=== PATIENT | male | born 1950 | race African-American/Black ===

== ENCOUNTER → 2017-01-11 | Day surgery (SDC) | payer OTHER ==
[~2017-01-11] MED LIST: ENAL5TAB PO; HYDR50TA94 PO; LACTATED RINGER'S 1000 ML INJ 1,000 ML ONE; LOVA40TA PO; PROPOFOL 200 MG/20 ML AMP IV ONE; TRAZ150T75 PO
--- NOTE | 2017-01-11 10:00 | GIPROC ---
[facility] [address], [address] COLONOSCOPY PROCEDURE REPORT EXAM DATE: 01/11/2017 PATIENT NAME: Carlito Srinivasan MR #: [id number] BIRTHDATE: 1950 ENDOSCOPIST: Massiel Sommer MD ORDER #: [id number] FIRE CONTROL ASSISTANT: Eliza Castellanos RN STATUS: outpatient INDICATIONS: The patient is a 66 yr old male here for a colonoscopy due to high risk patient with personal history of colonic polyps PROCEDURE PERFORMED: Colonoscopy with polypectomy MEDICATIONS: None and Per Anesthesia. PREP QUALITY: fair PREP TYPE:GoLytely ESTIMATED BLOOD LOSS: None CONSENT: The patient understands the risks and benefits of the procedure and understands that these risks include, but are not limited to: sedation, allergic reaction, infection, perforation and/or bleeding. Alternative means of evaluation and treatment include, among others: physical exam, x-rays, and/or surgical intervention. The patient elects to proceed with this endoscopic procedure. medical equipment was checked for proper function. Hand hygiene and appropriate measures for infection prevention was taken. After the risks, benefits and alternatives of the procedure were thoroughly explained, Informed consent was verified, confirmed and timeout was successfully executed by the treatment team. A digital exam revealed hemorrhoids The [id number] ([id number]) and [id number] ([id number]) endoscope was introduced through the anus and advanced to the cecum, which was identified by both the appendix and ileocecal valve. The instrument was then slowly withdrawn as the colon was fully examined. COLON FINDINGS: Diverticulosis sigmiod, descending polyp sessile descending-cold snare polypectomy with complete removal. Retroflexed views revealed internal hemorrhoids and Retroflexed views revealed small internal hemorrhoids The scope was then completely withdrawn from the patient and the procedure terminated. PROCEDURE WITHDRAWAL TIME:6minutes ADVERSE EVENTS: There were no complications. IMPRESSIONS: 1. Diverticulosis sigmiod, descending polyp sessile descending-cold snare polypectomy with complete removal 2. Retroflexed views revealed internal hemorrhoids 3. Retroflexed views revealed small internal hemorrhoids 4. Revealed hemorrhoids RECOMMENDATIONS: 1. Await biopsy results. Biopsy results will not be ready for 7-10 days. If you don't hear from us in two weeks, call our office for results. 2. Benefiber 2 tsp daily 3. High fiber diet 4. Probiotics from any [facility] or health food store RECALL: Colonoscopy, pending biopsy results Massiel Sommer MD eSigned: Massiel Sommer MD 01/11/2017 10:00 AM cc:
== END | disposition home or self-care (01) ==
LOC: ESDC 08:09
PROVIDERS: ATTEND Internal Medicine Gastroenterology
DX: Z12.11 Encounter for screening for malignant neoplasm of colon (principal); K57.90 Diverticulosis of intestine, part unspecified, without perforation or abscess without bleeding; D12.4 Benign neoplasm of descending colon
CPT/HCPCS: 00810; 45385; 88305; J7120

== ENCOUNTER 2017-09-24 13:29 | Emergency (ER) | payer MEDICARE, OTHER ==
[~2017-09-24] VITALS: Ht 182.9 cm; Wt 100.0 kg
[~2017-09-24 13:29] MED LIST changes: -LACTATED RINGER'S 1000 ML INJ 1,000 ML ONE; -PROPOFOL 200 MG/20 ML AMP IV ONE
[2017-09-24 13:30] VITALS: BP 133/75; PULSE 109; RESP 20; TEMP 98.8; O2SAT 96
[2017-09-24] MEDS ORDERED: SODIUM CHLOR 0.9% 1000 ML INJ 1,000 ML IV SCH (13:42)
[2017-09-24] MEDS ORDERED: LOVA40TA PO (13:45)
[2017-09-24] MEDS ORDERED: ENAL5TAB PO (13:45)
[2017-09-24] MEDS ORDERED: SODIUM CHLORIDE 0.9% FLUSH 10 ML FLUSH IV FLUSH PRN (13:45)
[2017-09-24 13:52] VITALS: O2SAT 96
--- NOTE | 2017-09-24 14:39 | PD ---
HPI Chief Complaint: GI Complaint Time Seen by Provider: 13:47 Travel History International Travel<30 days: No Contact w/Intl Traveler<30days: No Traveled to known affect area: No History of Present Illness HPI Patient is a 59-year-old male who presents to emergency room with complaints of abdominal pain with constipation. Patient reports that he normally has abnormal bowel movements, he normally has bowel movements every 4-5 days. Patient reports that his last normal bowel movement was 4 days ago. Patient reports that he was preparing for a class reunion today and decided to empty his bowels. Reports that he took 3 Dulcolax, MiraLAX as well as magnesium Citrate to have a bowel movement today, reports that he has not had a bowel movement yet. Patient reports concerns for small bowel obstruction. Patient reports that he has never had any abdominal surgeries in the past, he has never had small bowel obstruction the past. Patient with no nausea or vomiting, reports that he has been eating and drinking without any difficulties. 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) Allergies-Medications (Allergen,Severity, Reaction): Coded Allergies: No Known Allergies (Verified , 09/25/14) Reported Meds & Prescriptions Reported Meds & Active Scripts Active Reported Lovastatin 40 Mg Tab 80 Mg PO DAILY Enalapril (Enalapril Maleate) 5 Mg Tab 5 Mg PO DAILY Review of Systems General / Constitutional: No: Fever Eyes: No: Visual changes HENT: No: Headaches Cardiovascular: No: Chest Pain or Discomfort Respiratory: No: Shortness of Breath Gastrointestinal: Positive: Abdominal Pain, Constipation, No: Nausea, Vomiting Genitourinary: No: Urgency, Frequency, Dysuria Musculoskeletal: No: Pain Skin: No Rash Neurologic: No: Weakness Psychiatric: No: Depression Endocrine: No: Polydipsia Hematologic/Lymphatic: No: Easy Bruising Physical Exam Narrative GENERAL: moderate distress SKIN: Focused skin assessment warm/dry. HEAD: Atraumatic. Normocephalic. EYES: Pupils equal and round. No scleral icterus. No injection or drainage. ENT: No nasal bleeding or discharge. Mucous membranes pink and moist. NECK: Trachea midline. No JVD. CARDIOVASCULAR: Regular rate and rhythm. No murmur appreciated. RESPIRATORY: No accessory muscle use. Clear to auscultation. Breath sounds equal bilaterally. GASTROINTESTINAL: Abdomen soft, non-tender, nondistended. Hepatic and splenic margins not palpable. MUSCULOSKELETAL: No obvious deformities. No clubbing. No cyanosis. No edema. NEUROLOGICAL: Awake and alert. No obvious cranial nerve deficits. Motor grossly within normal limits. Normal speech. PSYCHIATRIC: Appropriate mood and affect; insight and judgment normal. Data Data Last Documented VS Vital Signs Date Time Temp Pulse Resp B/P (MAP) Pulse Ox O2 Delivery O2 Flow Rate FiO2 09/24/17 13:52 96 Room Air 09/24/17 13:30 98.8 109 20 Orders Orders Complete Blood Count With Diff (09/24/17 13:42) Comprehensive Metabolic Panel (09/24/17 13:42) Prothrombin Time / Inr (Pt) (09/24/17 13:42) Act Partial Throm Time (Ptt) (09/24/17 13:42) Urinalysis - C+S If Indicated (09/24/17 13:42) Iv Access Insert/Monitor (09/24/17 13:42) Ecg Monitoring (09/24/17 13:42) Oximetry (09/24/17 13:42) Sodium Chlor 0.9% 1000 Ml Inj (Ns 1000 M (09/24/17 13:42) Sodium Chloride 0.9% Flush (Ns Flush) (09/24/17 13:45) Ct Abd/Pel W Iv Contrast(Rout) (09/24/17 14:17) Oral Contrast - Adult (09/24/17 14:23) Labs Laboratory Tests Test 09/24/17 13:50 MDM Medical Decision Making Medical Screen Exam Complete: Yes Emergency Medical Condition: Yes Medical Record Reviewed: Yes Interpretation(s) Vital Signs Date Time Temp Pulse Resp B/P (MAP) Pulse Ox O2 Delivery O2 Flow Rate FiO2 09/24/17 13:52 96 Room Air 09/24/17 13:30 98.8 109 20 133/75 (94) 96 Room Air Differential Diagnosis Small bowel obstruction, constipation, electrolyte abnormality Narrative Course During the course of the patients emergency department visit, the patients history, examination, and differential diagnosis were reviewed with the patient. The patient was placed on a court monitor with oximetry and frequent blood pressure monitoring. The patient had an IV access obtained and blood work sent for analysis. The patient was initially provided IVF The patients laboratory studies were reviewed and remarkable for [-]. Radiology studies were reviewed and remarkable for [-] Estela Kinney DO Sep 24, 2017 14:39
[2017-09-24 14:47] LABS: AUTOMATED NEUTROPHIL # 4.1 TH/MM3 (1.8-7.7); BASOPHIL % 0.4 % (0.0-2.0); EOSINOPHIL % 0.5 % (0.0-4.0); HEMATOCRIT 43.9 % (39.0-51.0); HEMO FLAGS DIFF FINAL; LYMPH % 26.1 % (9.0-44.0); LYMPHOCYTE # 1.7 TH/MM3 (1.0-4.8); MEAN CELL VOLUME 89.9 FL (80.0-100.0); MEAN CORPUSCULAR HEMOGLOBIN 30.6 PG (27.0-34.0); MEAN CORPUSCULAR HGB CONC 34.1 % (32.0-36.0); MONO % 8.5 % (0.0-8.0); NEUT % 64.5 % (16.0-70.0); PLATELET COUNT 211 TH/MM3 (150-450); RED BLOOD COUNT 4.89 MIL/MM3 (4.50-5.90); RED CELL DISTRIBUTION WIDTH 13.7 % (11.6-17.2); WHITE BLOOD COUNT 6.3 TH/MM3 (4.0-11.0)
[2017-09-24] MEDS ORDERED: DIATRIZOATE MEGLUM/DIATRIZOATE SOD 9 ML CUP ONE (14:50)
[2017-09-24 14:54] LABS: INTERNATIONAL NORMALIZED RATIO 1.2 RATIO
[2017-09-24 15:08] LABS: ALKALINE PHOSPHATASE 78 U/L (45-117); ALT (GPT) 61 U/L (12-78); ANION GAP 7 MEQ/L (5-15); AST (GOT) 38 U/L (15-37); BICARBONATE 24.7 MEQ/L (21.0-32.0); BLOOD UREA NITROGEN 9 MG/DL (7-18); CHLORIDE 106 MEQ/L (98-107); GLOMERULAR FILTRATION RATE 86 ML/MIN (>89); POTASSIUM 4.2 MEQ/L (3.5-5.1); SODIUM (NA) 138 MEQ/L (136-145); TOTAL BILIRUBIN ADULT 0.4 MG/DL (0.2-1.0)
[2017-09-24 15:30] VITALS: BP 134/76; PULSE 94; RESP 17; O2SAT 97
[2017-09-24 17:10] VITALS: BP 137/74; PULSE 97; RESP 19; O2SAT 97
[2017-09-24] MEDS ORDERED: IOHEXOL 350 MG/ML 10 ML VIAL (for RAD DIAG) IVCONTRAST ONE (18:00)
--- NOTE | 2017-09-24 18:35 | RADRPT ---
EXAM DATE/TIME: 09/24/2017 18:00 [place] COMPARISON: No previous studies available for comparison. INDICATIONS : Constipation, abdominal pain. IV CONTRAST: 96 cc Omnipaque 350 (iohexol) IV ORAL CONTRAST: Prescribed oral contrast ingested. RADIATION DOSE: 15.18 CTDIvol (mGy) MEDICAL HISTORY : Seizures. Hypertension. Ca prostate, diabetes SURGICAL HISTORY : None. ENCOUNTER: Initial ACUITY: 1 day PAIN SCALE: 6/10 LOCATION: abdominal TECHNIQUE: Volumetric scanning of the abdomen and pelvis was performed. Using automated exposure control and ad justment of the mA and/or kV according to patient size, radiation dose was kept as low as reasonably achievable to obtain optimal diagnostic quality images. DICOM format image data is available electro nically for review and comparison. FINDINGS: LOWER LUNGS: There is a focal bleb within the right middle lobe and scarring within the lingula of the left upper lobe. LIVER: Homogeneous density without lesion. There is no dilation of the biliary tree. No calcified gallston es. SPLEEN: Normal size without lesion. PANCREAS: Within normal limits. KIDNEYS: Normal in size and shape. There is no mass, stone or hydronephrosis. ADRENAL GLANDS: Within normal limits. VASCULAR: There is no aortic aneurysm. BOWEL/MESENTERY: The rectum is dilated and filled with fecal debris suggesting impaction. There appears to be streakin ess around in the perirectal fat raising possibility of colitis. Clinical correlation is recommended. ABDOMINAL WALL: Within normal limits. RETROPERITONEUM: There is no lymphadenopathy. BLADDER: No wall thickening or mass. REPRODUCTIVE: Within normal limits. INGUINAL: There is no lymphadenopathy or hernia. MUSCULOSKELETAL: There is a mild compression deformity involving T12 which is likely chronic. Degenerative changes and scoliosis of the thoracolumbar spine are noted. CONCLUSION: 1. Dilated rectum filled with fecal debris suggesting impaction. Perirectal inflammatory changes are also noted raising possibility of colitis. Clinical correlation is recommended. 2. Mild chronic compression deformity involving T12. 3. Degenerative changes and scoliosis of the thoracolumbar spine. 4. Focal bleb within the right middle lobe. 5. Scarring within the lingula of the left upper lobe. Tae Hurtado MD on September 24, 2017 at 18:26 Board Certified Radiologist. This report was verified electronically.
[2017-09-24] MEDS ORDERED: CIPR-9 PO (18:50)
[2017-09-24] MEDS ORDERED: METR-1 PO (18:50)
--- NOTE | 2017-09-24 18:51 | PD ---
Data Data Last Documented VS Vital Signs Date Time Temp Pulse Resp B/P (MAP) Pulse Ox O2 Delivery O2 Flow Rate FiO2 09/24/17 17:10 97 19 137/74 (95) 97 Room Air 09/24/17 13:30 98.8 Orders Orders Complete Blood Count With Diff (09/24/17 13:42) Comprehensive Metabolic Panel (09/24/17 13:42) Prothrombin Time / Inr (Pt) (09/24/17 13:42) Act Partial Throm Time (Ptt) (09/24/17 13:42) Urinalysis - C+S If Indicated (09/24/17 13:42) Iv Access Insert/Monitor (09/24/17 13:42) Ecg Monitoring (09/24/17 13:42) Oximetry (09/24/17 13:42) Sodium Chlor 0.9% 1000 Ml Inj (Ns 1000 M (09/24/17 13:42) Sodium Chloride 0.9% Flush (Ns Flush) (09/24/17 13:45) Ct Abd/Pel W Iv Contrast(Rout) (09/24/17 14:17) Oral Contrast - Adult (09/24/17 14:23) Diatrizoate Liq ( Gastromadyson Liq) (09/24/17 14:50) Iohexol 350 Inj (Omnipaque 350 Inj) (09/24/17 18:00) Ciprofloxacin (Cipro) (09/24/17 19:00) Metronidazole (Flagyl) (09/24/17 19:00) Labs Laboratory Tests Test 09/24/17 13:50 09/24/17 18:25 White Blood Count 6.3 TH/MM3 Red Blood Count 4.89 MIL/MM3 Hemoglobin 15.0 GM/DL Hematocrit 43.9 % Mean Corpuscular Volume 89.9 FL Mean Corpuscular Hemoglobin 30.6 PG Mean Corpuscular Hemoglobin Concent 34.1 % Red Cell Distribution Width 13.7 % Platelet Count 211 TH/MM3 Mean Platelet Volume 10.1 FL Neutrophils (%) (Auto) 64.5 % Lymphocytes (%) (Auto) 26.1 % Monocytes (%) (Auto) 8.5 % Eosinophils (%) (Auto) 0.5 % Basophils (%) (Auto) 0.4 % Neutrophils # (Auto) 4.1 TH/MM3 Lymphocytes # (Auto) 1.7 TH/MM3 Monocytes # (Auto) 0.5 TH/MM3 Eosinophils # (Auto) 0.0 TH/MM3 Basophils # (Auto) 0.0 TH/MM3 CBC Comment DIFF FINAL Differential Comment Prothrombin Time 12.0 SEC Prothromb Time International Ratio 1.2 RATIO Activated Partial Thromboplast Time 28.0 SEC Blood Urea Nitrogen 9 MG/DL Creatinine 1.04 MG/DL Random Glucose 111 MG/DL Total Protein 8.6 GM/DL Albumin 3.9 GM/DL Calcium Level 9.3 MG/DL Alkaline Phosphatase 78 U/L Aspartate Amino Transf (AST/SGOT) 38 U/L Alanine Aminotransferase (ALT/SGPT) 61 U/L Total Bilirubin 0.4 MG/DL Sodium Level 138 MEQ/L Potassium Level 4.2 MEQ/L Chloride Level 106 MEQ/L Carbon Dioxide Level 24.7 MEQ/L Anion Gap 7 MEQ/L Estimat Glomerular Filtration Rate 86 ML/MIN MDM Supervised Visit with PADMINI: No Narrative Course The patient was initially evaluated by the previous provider and sent out to me at the beginning of my shift at approximately 5:[address] abdomen pelvis and disposition. See her note for further details. Briefly this a 67-year-old male who presents feeling constipated. He has not had a bowel movement in 4 days. He tried [id number] laxatives today without a bowel movement. He has not vomited. No history of abdominal surgeries. CBC and CMP are unremarkable. While in the emergency department the patient had a large bowel movement and reports feeling significantly improved. His abdominal exam is benign. CT abdomen pelvis: CONCLUSION: 1. Dilated rectum filled with fecal debris suggesting impaction. Perirectal inflammatory changes are also noted raising possibility of colitis. Clinical correlation is recommended. 2. Mild chronic compression deformity involving T12. 3. Degenerative changes and scoliosis of the thoracolumbar spine. 4. Focal bleb within the right middle lobe. 5. Scarring within the lingula of the left upper lobe. Patient reports that he had a colonoscopy in the last 1-2 years and was told that he had a couple of polyps. He has a follow-up appointment with a primary care physician next week. I will start him on Cipro and Flagyl for possible colitis. Again he had a large bowel movement while in the emergency department and states he feels significantly improved. He was informed on when to return to the emergency department. He verbalizes understanding and agreement with plan. Diagnosis Primary Impression: Fecal impaction Additional Impression: Colitis Referrals: Primary Care Physician 3 days Additional Instruction: Follow-up with your primary care physician next week as scheduled. Return to the emergency department for worsening symptoms or any other concerns. Scripts Metronidazole (Flagyl) 500 Mg Tab 500 MG PO BID for Infection for 10 Days, #20 TAB 0 Refills Prov: Delmer Dent MD 09/24/17 Ciprofloxacin (Cipro) 500 Mg Tab 500 MG PO BID for Infection for 10 Days, #20 TAB 0 Refills Prov: Delmer Dent MD 09/24/17 Disposition: 01 DISCHARGE HOME Condition: Stable Delmer Dent MD Sep 24, 2017 18:51
[2017-09-24 18:57] LABS: BLOOD, URINE NEG (NEG); COMMENT (UR) CULT NOT INDICATED; CULTURE IF INDICATED CULT NOT INDICATED; GLUCOSE,URINE NEG (NEG); KETONE, URINE NEG (NEG); MUCUS URINE FEW /lpf (OCC); NITRITE,URINE NEG (NEG); SQUAMOUS EPITHELIAL CELL URINE 1 /hpf (0-5); URINE COLOR YELLOW (YELLW/STRAW)
[2017-09-24] MEDS ORDERED: metroNIDAZOLE 500 MG TAB PO ONE (19:00)
[2017-09-24] MEDS ORDERED: CIPROFLOXACIN 500 MG TAB PO ONE (19:00)
== END 2017-09-24 19:46 | disposition home or self-care (01) ==
LOC: NEPD 13:29
DX: K56.41 Fecal impaction (principal); K52.9 Noninfective gastroenteritis and colitis, unspecified; M41.9 Scoliosis, unspecified; F41.9 Anxiety disorder, unspecified; E78.00 Pure hypercholesterolemia, unspecified; E11.9 Type 2 diabetes mellitus without complications; I10 Essential (primary) hypertension; R56.9 Unspecified convulsions; Z79.899 Other long term (current) drug therapy
CPT/HCPCS: 74177; 80053; 81001; 85025; 85610; 85730; 96360; 99285; J7030; Q9963; Q9967